=== PATIENT | male | born 1970 | race Caucasian/White ===

== ENCOUNTER 2022-01-08 20:14 | Emergency (ER) | payer BC ==
[~2022-01-08 20:14] MED LIST: CIPRO500 MG PO; FLAGYL500 MG PO; ZOFRAN4 MG PO
[2022-01-08 20:39] LABS: HEMOGLOBIN 14.8 gm/dl (14.0-17.5); RED BLOOD COUNT 4.6 M/UL (4.20-5.50); WHITE BLOOD COUNT 9.7 K/UL (4.5-11.0)
[2022-01-08 21:11] LABS: BUN/CREATININE RATIO 13 (0-10)
== END 2022-01-09 02:00 | disposition home or self-care (01) ==
LOC: ER1 20:14
PROVIDERS: Family Medicine
DX: R00.2 Palpitations (principal); F17.200 Nicotine dependence, unspecified, uncomplicated; I10 Essential (primary) hypertension
CPT/HCPCS: 71045; 80053; 82550; 82553; 84484; 85025; 93005; 99285